=== PATIENT | male | born 1990 | race Caucasian/White ===

== ENCOUNTER 2021-04-09 10:11 | Emergency (ER) | payer BC, SELFPAY ==
[2021-04-09 10:25] VITALS: BP 126/74; PULSE 71; RESP 18; TEMP 36.9; O2SAT 100
--- NOTE | 2021-04-09 10:31 | ED.EAR ---
HPI - Ear Problem General Chief complaint: Ear Stated complaint: Headache,Lt Ear Irritation Time Seen by Provider: 04/09/21 10:30 Source: patient Mode of arrival: ambulatory Limitations: no limitations History of Present Illness HPI Narrative: Benigno Neal is a 31 yo male with no PMH who [facility] with decreased hearing in left ear and appears to have wax buildup- states it has been bothering him for the last few days Related Data Home Medications Medication Instructions Recorded Confirmed No Home Medications 04/09/21 04/09/21 Allergies Allergy/AdvReac Type Severity Reaction Status Date / Time No Known Allergies Allergy Verified 04/09/21 10:25 Review of Systems Review of Systems: CONSTITUTIONAL: Denies fever, chills, sweats. EYES: Denies visual changes, redness, discharge. ENT: Denies rhinorrhea, congestion, sore throat, left otalgia. Has possible wax CARDIOVASCULAR: Denies chest pain, palpitations, edema. RESPIRATORY: Denies dyspnea, wheezing, cough GASTROINTESTINAL: Denies abdominal pain, nausea, vomiting, diarrhea. GENITOURINARY: Denies dysuria, hematuria, abnormal discharge SKIN: Denies rash or itching. NEUROLOGIC: Denies numbness, or focal weakness. PSYCHIATRIC: Denies anxiety or depression. [facility] Past Medical History Medical History No acute medical problems Social History Social History (Updated 04/09/21 @ 10:46 by Lauren Bob CNP) Smoking status: Never smoker Alcohol intake: current Comments At time of signature, I agree with nursing past medical, surgical, social and family history. There is no relevant family history pertinent to the presenting complaint. Exam Narrative: GENERAL: This is a well-nourished, well-developed patient, in mild distress. HEAD: normocephalic, atraumatic. EYES: Sclera clear/white. Vision is grossly intact. EARS: External ears normal, auditory canal on left obstructed with cerumen and without drainage, Hearing grossly intact. NOSE: External nose normal without nasal discharge, nares without redness, no rhinorrhea. THROAT: Mucous membranes moist, NECK: Neck supple, non-tender CARDIOVASCULAR: Regular rate and rhythm without murmurs, gallops, or rubs. RESPIRATORY: Clear to auscultation. Breath sounds equal bilaterally. No wheezes, rales, or rhonchi. GASTROINTESTINAL: Not done SKIN: warm, intact with no suspicious lesions or rash, good texture and turgor. NEURO: awake, alert, and oriented to person, place and time. There were no obvious focal neurologic abnormalities. Steady gait EXTREMITIES: Normal range of motion. BACK: Nontender without deformity Course Course Emergency Course: She comes with decreased hearing left ear There is buildup of cerumen in left canal that was flushed out Started on polymyxin eardrops Level of Care: Express Care Visit Vital Signs Vital signs: Vital Signs Temperature 98.5 F 04/09/21 10:25 Pulse Rate 71 04/09/21 10:25 Respiratory Rate 18 04/09/21 10:25 Blood Pressure 126/74 04/09/21 10:25 Pulse Oximetry 100 04/09/21 10:25 Temperature 98.5 F 04/09/21 10:25 Pulse Rate 71 04/09/21 10:25 Respiratory Rate 18 04/09/21 10:25 Blood Pressure 126/74 04/09/21 10:25 Pulse Oximetry 100 04/09/21 10:25 Procedures Ear Wax Removal Left Ear: Ear Wax Removal Date: 04/09/21 Ear Wax Removal Time: 10:48 Results: Re-examined: cerumen removed completely TM Examination: TM(s) intact, normal appearance Ear Canal Exam: atraumatic Patient Tolerated Procedure: well Complications: no problems Technique: ear canal irrigated Medical Decision Making Differential Diagnosis Differential Diagnosis: Otitis versus cerumen cerumen versus sinusitis Vital Signs Vital Signs: Vital Signs Temperature 98.5 F 04/09/21 10:25 Pulse Rate 71 04/09/21 10:25 Respiratory Rate 18 04/09/21 10:
== END 2021-04-09 10:53 | disposition home or self-care (01) ==
PROVIDERS: Emergency Provider Nurse Practitioner
DX: H61.22 Impacted cerumen, left ear (principal)
CPT/HCPCS: 69209; 99213; A9270; G0463